=== PATIENT | female | born 1935 | race Caucasian/White ===

== ENCOUNTER 2020-12-14 21:09 | Inpatient (IN) | payer MEDICARE, OTHER ==
[~2020-12-14] VITALS: Ht 165.1 cm; Wt 74.4 kg
[~2020-12-14 21:09] MED LIST: CODEINE-GUAIFE473 ML PO; LEVAQUIN500 MG PO; LEVAQUIN750 MG PO; PREDNISONE 20 M20 MG GT
[2020-12-14 21:38] LABS: HEMOGLOBIN 10.8 gm/dl (12.3-15.3); RED BLOOD COUNT 3.64 M/UL (4.00-5.10); WHITE BLOOD COUNT 10.6 K/UL (4.5-11.0)
[2020-12-14 22:04] LABS: BUN/CREATININE RATIO 21 (0-10)
[2020-12-15] MEDS ORDERED: VITAMIN D21250 MCG PO (09:46)
[2020-12-15] MEDS ORDERED: GABAPENTIN600 MG PO (09:46)
[2020-12-15] MEDS ORDERED: HYDROCODON-ACE1 EAC6 PO (09:46)
[2020-12-15] MEDS ORDERED: ELIQUIS5 MG PO (09:47)
[2020-12-15] MEDS ORDERED: FUROSEMIDE20 MG PO (09:47)
[2020-12-15] MEDS ORDERED: HYDROXYCHLOROQ200 MG PO (09:47)
[2020-12-15] MEDS ORDERED: METOPROLOL TART50 MG PO (09:47)
[2020-12-15] MEDS ORDERED: CYANOCOBAL1000 MCG/1 INJ (09:49)
[2020-12-15 11:13] LABS: HEMOGLOBIN 10.6 gm/dl (12.3-15.3); RED BLOOD COUNT 3.68 M/UL (4.00-5.10); WHITE BLOOD COUNT 8.7 K/UL (4.5-11.0)
[2020-12-15 11:39] LABS: BUN/CREATININE RATIO 18 (0-10)
[2020-12-16 02:16] LABS: HEMOGLOBIN 9.6 gm/dl (12.3-15.3); RED BLOOD COUNT 3.39 M/UL (4.00-5.10)
[2020-12-16 02:39] LABS: BUN/CREATININE RATIO 16 (0-10)
[2020-12-17 03:31] LABS: HEMOGLOBIN 10.2 gm/dl (12.3-15.3); RED BLOOD COUNT 3.71 M/UL (4.00-5.10); WHITE BLOOD COUNT 7.6 K/UL (4.5-11.0)
[2020-12-17 03:47] LABS: BUN/CREATININE RATIO 13 (0-10)
[2020-12-18 03:55] LABS: HEMOGLOBIN 10.7 gm/dl (12.3-15.3); RED BLOOD COUNT 3.75 M/UL (4.00-5.10); WHITE BLOOD COUNT 6.7 K/UL (4.5-11.0)
[2020-12-18] MEDS ORDERED: LEVOFLOXACIN250 MG PO (09:04)
[2020-12-18] MEDS ORDERED: FERROUS SULFAT325 M2 PO (09:04)
[2020-12-18] MEDS ORDERED: DIGOXIN125 MCG PO (09:04)
[2020-12-18] MEDS ORDERED: LASIX20 MG PO (09:12)
[2020-12-20 17:10] LABS: ORGANISM ID Not indicated. (.); SPECIMEN SOURCE Urine (.); STREPTOCOCCUS PNEUMONIAE AG Negative (Negative)
== END 2020-12-18 11:05 | disposition home health service (06) | DRG 291 ==
LOC: ER1 21:09 → CDU 23:12 → PROG CARE 23:12
PROVIDERS: Emergency Medicine; Internal Medicine; ADMIT Internal Medicine
DX: I11.0 Hypertensive heart disease with heart failure (principal); J18.9 Pneumonia, unspecified organism; I50.33 Acute on chronic diastolic (congestive) heart failure; J90 Pleural effusion, not elsewhere classified; I48.0 Paroxysmal atrial fibrillation; Z20.822 Contact with and (suspected) exposure to COVID-19; M81.0 Age-related osteoporosis without current pathological fracture; R53.83 Other fatigue; J44.9 Chronic obstructive pulmonary disease, unspecified; M06.9 Rheumatoid arthritis, unspecified; M54.9 Dorsalgia, unspecified; G89.29 Other chronic pain; Z79.899 Other long term (current) drug therapy; Z79.52 Long term (current) use of systemic steroids; Z98.890 Other specified postprocedural states; Z82.49 Family history of ischemic heart disease and other diseases of the circulatory system; Z88.0 Allergy status to penicillin
CPT/HCPCS: ECHO; 36415; 71045; 71250; 74230; 80048; 80053; 80162; 82550; 82553; 83540; 83550; 83605; 83735; 83880; 84100; 84132; 84484; 85025; 85027; 85610; 85730; 86140; 87040; 87070; 87205; 87278; 87899; 92610; 92611-GN; 93005; 93306; 94640; 94664; 94760; 96374; 96375; 97162; 97166; 99285; G0378; J1160; J1644; J1940; J1956; U0002

== ENCOUNTER 2021-01-25 08:48 | Emergency (ER) | payer MEDICARE, OTHER ==
[~2021-01-25 08:48] MED LIST changes: +CYANOCOBAL1000 MCG/1 INJ; +DIGOXIN125 MCG PO; +ELIQUIS5 MG PO; +FERROUS SULFAT325 M2 PO; +FUROSEMIDE20 MG PO; +GABAPENTIN600 MG PO; +HYDROCODON-ACE1 EAC6 PO; +HYDROXYCHLOROQ200 MG PO; +LASIX20 MG PO; +LEVOFLOXACIN250 MG PO; +METOPROLOL TART50 MG PO; +VITAMIN D21250 MCG PO
== END 2021-01-25 08:51 | disposition expired ==
LOC: ER1 08:48
DX: I46.9 Cardiac arrest, cause unspecified (principal); I48.91 Unspecified atrial fibrillation; Z79.01 Long term (current) use of anticoagulants
CPT/HCPCS: 99285; J0171